=== PATIENT | male | born 1930 | race Caucasian/White ===

== ENCOUNTER 2016-11-17 14:29 | Inpatient (IN) | payer MEDICARE, BC ==
[2016-11-17] MEDS: Sodium Chloride 0.9% 10 ML Syringe FLUSH PRN ×2 (15:56→19:54)
[2016-11-17] MEDS ORDERED: Sodium Chloride 0.9% 1,000 ML IV ONE (17:11)
[2016-11-17] MEDS ORDERED: cefTRIAXone 500 MG Vial IVPUSH ONE (17:13)
[2016-11-17] MEDS ORDERED: cefTRIAXone 1 GM in Sodium Chloride 0.9% 50 ML IV ONE (17:58)
--- NOTE | 2016-11-17 18:50 | PCM.HP ---
H&P History of Present Illness - General Date of Service: 11/17/16 Admit Problem/Dx: Pt admitted with increased confusion, Pneumonia and weakness Source of Information: Family () History Limitations: Reports: No limitations, Altered mental status (pt is confused), Other (obtained from ) - History of Present Illness Initial Comments - Free Text/Narative: Young Martinez is a 86 y.o. 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 He has not needed transfusions. He was noted to have worsening leukopenia and thrombocytopenia in October 2016. He started requiring PRBC transfusion and was also hospitalized for a community acquired pneumonia in October 2016. A bone marrow biopsy and aspirate was done 10/16/16, remarkable for trilineage dyspoiesis and 8% blasts. Sideroblasts were noted in 30 of 50 nrbc's. The bone marrow sections are 20% cellular. He is started treatment for Myelodysplasia with Azacitadine on 11/09/16 and completed 7 days course on 11/15/16. and he gets followed by Dr. [facility] [place] Today he feels extremely weak and confused and can not help him at home brought to ED and had CXR showed RT lower lobe consolidation/Infiltrate and he also had CT of Head and found to have no acute intracranial pathology. at home he is normally active and able to do his thing by himself Onset of Symptoms: Reports: today, sudden Associated Symptoms: Reports: cough w sputum, loss of appetite - Related Data Allergies/Adverse Reactions: Allergies Allergy/AdvReac Type Severity Reaction Status Date / Time iodine Allergy Cannot Verified 11/17/16 19:50 Remember lorazepam Allergy Confusion Verified 11/17/16 19:50 Home Medications: Home Meds Acetaminophen [Tylenol] 2 tab PO Q6H PRN 06/29/14 [History] Allopurinol 300 mg PO DAILY 06/29/14 [History] Hydrochlorothiazide 25 mg PO DAILY 06/29/14 [History] Meclizine [Antivert] 50 mg PO DAILY 06/29/14 [History] Omeprazole 20 mg PO DAILY 06/29/14 [History] Tamsulosin HCl 1 tab PO DAILY 06/29/14 [History] Ferrous Sulfate 324 mg PO BID 04/09/16 [History] Finasteride 5 mg PO DAILY 04/09/16 [History] Azithromycin [Zithromax] 250 mg PO DAILY 11/17/16 [History] Prochlorperazine Maleate [Compazine] 10 mg PO DAILY PRN 11/17/16 [History] Past Medical History HEENT History: Reports: Cataract, Hard of hearing, Impaired vision Cardiovascular History: Reports: Hypertension Respiratory History: Reports: Asthma, COPD, SOB Other Respiratory History: Uses O2 at bedtime at 1L per nc. Gastrointestinal History: Reports: GERD Genitourinary History: Reports: BPH, Prostate disorder CUTTER DOWN History: Reports: None Musculoskeletal History: Reports: Gout Neurological History: Reports: None Psychiatric History: Reports: None Endocrine/Metabolic History: Reports: None Hematologic History: Reports: Anesthesia reaction, Anemia Other Hematologic History: GI intolerance from anesthesia Immunologic History: Reports: None Oncologic (Cancer) History: Reports: Bladder, Lung Dermatologic History: Reports: None - Infectious Disease History Infectious Disease History: Reports: Chicken pox, Measles, Mumps, Rubella - Past Surgical History HEENT Surgical History: Reports: Cataract surgery Respiratory Surgical History: Reports: Lung Resection, Thoracotomy Other Respiratory Surgeries/Procedures: wedge resection RUL (sq. cell CA) 2008, and RLL (benign) 2014 GI Surgical History: Reports: None Male Surgical History: Reports: Cystectomy, Penile surgery, TURP- Transurethral resection of prostate Social & Family History - Family History Family Medical History: Noncontributory Endocrine/Metabolic: Reports: Diabetes, type II Oncologic: Reports: Bladder, Other (see below) Other Oncologic Family History: bladder cancer-father - Tobacco Use Smoking Status *Q: Never Smoker Years of Tobacco use: 60 Packs/Tins Daily: 3 Used Tobacco, but Quit: Yes Month Tobacco Last Used: 6 years ago Second Hand Smoke Exposure: No - Caffeine Use Caffeine Use: Reports: Coffee - Alcohol Use Days Per Week of Alcohol Use: 0 - Recreational Drug Use Recreational Drug Use: No Drug Use in Last 12 Months: No - Living Situation & Occupation Living situation: Reports: , with spouse Occupation: retired H&P Review of Systems - Review of Systems: Review Of Systems: Unable To Obtain Free Text/Narrative: pt is confused and only said I am feeling Terrible Exam - Exam Exam: See Below - Vital Signs Vital Signs: Last Vital Signs Temp 37.2 C 11/17/16 14:43 Pulse 103 H 11/17/16 14:43 Resp 16 11/17/16 14:43 BP 106/43 L 11/17/16 14:43 Pulse Ox 92 L 11/17/16 14:43 Weight: 76.113 kg - Exam Quality Assessment: DVT prophylaxis. No: supplemental oxygen, urinary catheter General: alert, cooperative, other (confused) HEENT: Conjunctiva clear, Hearing intact, Mucosa moist & pink Neck: supple. No: lymphadenopathy, thyromegaly Lungs: Clear to auscultation, Normal respiratory effort Cardiovascular: regular rate, regular rhythm, systolic murmur Abdomen: normal bowel sounds, soft (Male) Exam: Deferred Rectal (Males) Exam: Deferred Back Exam: normal inspection Skin: warm, dry, intact Neuro Extensive - Mental Status: alert (not oriented), normal mood/affect, normal cognition Psychiatric: alert - Patient Data Result Diagrams: 11/17/16 15:11 11/17/16 15:11 *Q Meaningful Use (ADM) - VTE *Q VTE Criteria *Q: - Stroke *Q Stroke Criteria *Q: - AMI *Q AMI Criteria *Q: - Problem List (1) Hypokalemia SNOMED Code(s): 66521040 ICD Code: E87.6 - HYPOKALEMIA Status: Acute Current Visit: Yes (2) Thrombocytopenia SNOMED Code(s): 796176554 ICD Code: D69.6 - THROMBOCYTOPENIA, UNSPECIFIED Status: Acute Current Visit: Yes (3) Leukopenia SNOMED Code(s): 45795677 ICD Code: D72.819 - DECREASED WHITE BLOOD CELL COUNT, UNSPECIFIED Status: Acute Current Visit: Yes (4) Hypotension SNOMED Code(s): 65006148 ICD Code: I95.9 - HYPOTENSION, UNSPECIFIED Status: Acute Current Visit: Yes (5) COPD exacerbation SNOMED Code(s): 803974877, 716697268 ICD Code: J44.1 - CHRONIC OBSTRUCTIVE PULMONARY DISEASE W (ACUTE) EXACERBATION Status: Acute Priority: Medium Current Visit: No (6) Pneumonia SNOMED Code(s): 270134296 ICD Code: J18.9 - PNEUMONIA, UNSPECIFIED ORGANISM Status: Acute Priority : High Current Visit: No Qualifiers: Pneumonia type: due to unspecified organism Laterality: right Lung location: lower lobe of lung Qualified Code(s): J18.1 - Lobar pneumonia, unspecified organism (7) Altered mental status SNOMED Code(s): 065393830 ICD Code: R41.82 - ALTERED MENTAL STATUS, UNSPECIFIED Status: Resolved Priority: Medium Current Visit: No Qualifiers: Altered mental status type: disorientation Qualified Code(s): R41.0 - Disorientation, unspecified Problem List Initiated/Reviewed/Updated: Yes Orders Last 24hrs: Medication Orders Sodium Chloride (Normal Saline) 1,000 mls @ 500 mls/hr IV .BOLUS ONE Stop: 11/17/16 19:10 Last Admin: 11/17/16 17:56 Dose: 500 mls/hr Sodium Chloride (Saline Flush) 10 ml FLUSH ASDIRECTED PRN PRN Reason: Keep Vein Open Last Admin: 11/17/16 15:56 Dose: 10 ml Assessment/Plan Comment:: This is a 86 y.o. with newly diagnosed myelodysplasia and lung cancer in remission, chronic with recurrent superficial bladder cancer, has completed 7 days course of Chemotherapy fro Newly Dxed Myelodysplasia, last dose of therapy on 11/15/16. Today he feels extremely weak and confused and can not help him at home brought to ED and had CXR showed RT lower lobe consolidation/Infiltrate and he also had CT of Head and found to have no acute intracranial pathology. at home he is normally active and able to do his thing by himself. 1. COPD Exacerbation: Likely with Rt lower lode pneumonia -Will start him on Zosyn 3.375 mg IV q6 hrs and Ceftriaxone 1 gm IV daily -Will start Solumedroal 40 mg IV q8 hrs -Follow Blood culture and also get sputum culture -Will conmtinue IV Fluids NS with potassium chloride 20 meq at 75 ml/hr -Encourage Flutter Valve and Incentive spirometry 2. Altered Mental Status: This is likely from Infection -Will Continue IV fluid and antibiotics 3. Hypokalemia: This is likely from poor oral Intake -Will give with IV fluids 4. Hypertension: Continue Home medication 5. Lung Cancer and Myelodysplasia: Will Follow with Oncology after discharge 6. Thrombocytopenia: Likely from Chemotherapy and Myelodysplasia, He is not actively bleeding and will discuss with oncology before transfusing platelet 7. Leukopenia: Thiis likely from Chemotherapy as well as Myelodysplasia, Follow B/C and continue Abx 8. DVT prophylaxis: Heparin 5000 units q8 hrs 9. GI Prophylaxis: Protonicx 40 mg IV daily in AM 10. Code Status: Discussed with and he is DNR/DNI
[2016-11-17] MEDS ORDERED: Acetaminophen 325 MG Tab PO PRN (19:14)
[2016-11-17] MEDS ORDERED: Docusate Sodium 100 MG Cap PO PRN (19:14)
[2016-11-17] MEDS ORDERED: NS + KCl 20mEq/L 1,000 ML IV SCH (19:30)
--- NOTE | 2016-11-17 19:44 | ER ---
SUBJECTIVE: The patient is an 86-year-old male, who was brought in by his , who is the sole caregiver, for general weakness and confusion, having a hard time taking care of him by herself at home. 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 He has not tolerated very well. He has become very weak and confused. He will not help transfer to the toilet any longer out of his chair and his cannot handle him. He has been on a Z-Deonte apparently for some pneumonia. He has not had any but studies of lately. All of the history comes from his . There is no history obtained from the patient and he can also not provide any ROS. PAST MEDICAL HISTORY: Significant for cataracts, hard of hearing, impaired vision, cataract surgery, hypertension, asthma, COPD, shortness of breath, uses oxygen 1 L at home per nasal cannula, lung resection, thoracotomy, had a wedge resection, right upper lobe. He has GERD, BPH, cystectomy, penile surgery, TURP, gout, osteoarthritis. He has leukemia. He had bladder and lung cancer. He had chickenpox, measles, mumps and rubella. FAMILY HISTORY: Bladder cancer, diabetes. CURRENT MEDICATIONS: Include: 1. Tylenol p.r.n. 2. Allopurinol 300 mg p.o. daily. 3. Hydrochlorothiazide 25 mg p.o. daily. 4. Meclizine 12.5 mg p.o. daily. 5. Omeprazole 20 mg p.o. daily. 6. Tamsulosin 1 tablet p.o. daily. 7. Cranberry tablet 4200 mg p.o. daily. 8. Ferrous sulfate 324 mg p.o. b.i.d. 9. Finasteride 5 mg p.o. daily. 10.Azithromycin 250 mg p.o. daily. 11.Compazine 10 mg p.o. p.r.n. ALLERGIES: He is allergic to iodine, and does not recall why lorazepam causes confusion. SOCIAL HISTORY: He is . His is the sole caregiver. He is retired, lives at home. He does not use tobacco, alcohol or drugs. REVIEW OF SYSTEMS: Some confusion today, general weakness on top of a chronic weakness. No falls or trauma. Chronic shortness of breath, chronic oxygen therapy at night time. He does have chronic shortness of breath. He is on oxygen at night. No nausea or vomiting. He has a decreased appetite. He has decreased strength, not helping to ambulate and transfer. No further ROS really available and he just had a decline in general and especially since getting chemotherapy per his . OBJECTIVE: Vital signs: Height is 1.7 m, weight is 76 kg. He is afebrile and heart rate is 103, blood pressure is 106/43, respiratory rate 16, oxygen is 92%. General: A large tall male in no distress. He seems somewhat confused. He is pleasant. He mostly wants to sleep. He is easily arousable and looked kind of confused at the questionnaire, then answers some questions that I do not know if he make sense. HEENT: He is normocephalic and atraumatic. Mucous membranes moist. Chest: Clear. CV: RRR. Abdomen: Soft and benign. Extremities: No calf tenderness. No specific signs of trauma, falls, or cellulitis. LAB/STUDIES: White blood cell count is decreased at 2.9, hemoglobin and hematocrit are also low at 8.4 and 25.3, respectively, platelets are also low at only 24, his neutrophils are elevated at 88.5, he has no band cells. His sodium is low at 131, potassium 3.3, chloride is 92. His gap is normal. His BUN and creatinine are elevated at 48 at 1.9, respectively. Glucose is 134. Lactic acid is elevated at 3.0. Calcium is normal. Total bili is 1.4 and elevated but LFTs are otherwise normal. Amylase is normal at 93. INR is 1.2. The blood cultures were obtained. Urine is yellow and clear, has 100 protein, trace occult blood, negative leukocyte esterase, negative nitrites. He does have moderate bacteria. Urine is sent for culture as well. ER COURSE: A line was placed, a chest x-ray was ordered. Head CAT scan was ordered, blood work was ordered. Double blood cultures were obtained. Urinalysis was obtained. The chest x-ray showed some changes with concern of possible early or resolving pneumonia, also possible lesion from his lung carcinoma. His head CT showed global atrophy with chronic ischemic changes but no acute changes. Once cultures were obtained, he was given Rocephin 1 g. He was given normal saline bolus as well. I had a long discussion with his after the workup was complete and discussed. The patient is cared at home, and her inability to care for him; the patient's confusion, weakness, and inability to help with his care; and overall decline; she advised me that the patient is DNR if his heart and lungs were to quit and he was no longer breathing, had heart rate, he wants nothing done and once be left alone. I tried to obtain a form in the ER, so that she could fill this out and I would be happy to assist her. There is not one available, perhaps, there will be one available on the floor and Dr. Ordonez can help to fill it. I did discuss the patient with Dr. Ordonez who is the hospitalist today and he graciously agreed to accept the patient to his inpatient service. ASSESSMENT: 1. Pneumonitis, resolved with new changes. 2. Known leukemia with recent chemotherapy with global decline. 3. Mental status changes with confusion and weakness. 4. Suspected sepsis. 5. Pancytopenia and the patient getting first dose of chemotherapy recently for leukemia. 6. Volume depletion. 7. Acute renal failure versus chronic renal insufficiency with elevated BUN and creatinine. 8. Failure to thrive and perform ADLs and IADLs. 9. DNR. After discussion with his , she is happy to fill out a form. There was not one available in the ER. PLAN: Admit the patient to the care of Dr. Ordonez. Recommend DNR form B supplied to the , so she can fill this out. [facility] /[id number]
[2016-11-17] MEDS: Piperacillin/Tazobactam 3.375 GM in Sodium Chloride 0.9% 100 ML IV SCH (19:53)
[2016-11-17] MEDS: methylPREDNISolone Sodium Succinate 40 MG/1 ML SDV IVPUSH SCH (19:54)
[2016-11-17] MEDS ORDERED: Ferrous Sulfate 325 MG Tab PO SCH (21:00)
[2016-11-17] MEDS ORDERED: Albuterol/Ipratropium 3.0-0.5 MG/3 ML Neb Soln NEB PRN (21:02)
[2016-11-18] MEDS: methylPREDNISolone Sodium Succinate 40 MG/1 ML SDV IVPUSH SCH (03:03)
[2016-11-18] MEDS: Piperacillin/Tazobactam 3.375 GM in Sodium Chloride 0.9% 100 ML IV SCH ×2 (03:04→08:00)
[2016-11-18] MEDS ORDERED: Pantoprazole 40 MG Tab.CR PO STA (07:44)
[2016-11-18 07:48] VITALS: BP 116/48
--- NOTE | 2016-11-18 07:54 | PCM.DCSUM1 ---
Discharge Summary - Hospital Course Free Text/Narrative:: Today he is more alert and says feels better, No nausea or vomiting, he is not actively bleeding and stable HPI Initial Comments: Young Martinez is a 86 y.o. 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 He has not needed transfusions. He was noted to have worsening leukopenia and thrombocytopenia in October 2016. He started requiring PRBC transfusion and was also hospitalized for a community acquired pneumonia in October 2016. A bone marrow biopsy and aspirate was done 10/16/16, remarkable for trilineage dyspoiesis and 8% blasts. Sideroblasts were noted in 30 of 50 nrbc's. The bone marrow sections are 20% cellular. He is started treatment for Myelodysplasia with Azacitadine on 11/09/16 and completed 7 days course on 11/15/16. and he gets followed by Dr. Live at [place] He was admitted on 11/17/16 because of extreme weakness and confusion and can not help him at home ,brought to ED and had CXR showed RT lower lobe consolidation/Infiltrate and he also had CT of Head and found to have no acute intracranial pathology. at home he is normally active and able to do his thing by himself. Today his Hgb 6.7 g/dl, Plt 9 and WBC 1.3. He is Dr. Live's pt and needs to be transferred for higher level of care - Discharge Data Discharge Date: 11/18/16 Discharge Disposition: DC/Tfer to Acute Hospital 02 Condition: Stable - Discharge Diagnosis/Problem(s) (1) Hypokalemia SNOMED Code(s): 29708406 ICD Code: E87.6 - HYPOKALEMIA Status: Acute Current Visit: Yes (2) Thrombocytopenia SNOMED Code(s): 073616334 ICD Code: D69.6 - THROMBOCYTOPENIA, UNSPECIFIED Status: Acute Current Visit: Yes (3) Leukopenia SNOMED Code(s): 86643149 ICD Code: D72.819 - DECREASED WHITE BLOOD CELL COUNT, UNSPECIFIED Status: Acute Current Visit: Yes (4) Hypotension SNOMED Code(s): 40457156 ICD Code: I95.9 - HYPOTENSION, UNSPECIFIED Status: Acute Current Visit: Yes (5) COPD exacerbation SNOMED Code(s): 812956502, 344613094 ICD Code: J44.1 - CHRONIC OBSTRUCTIVE PULMONARY DISEASE W (ACUTE) EXACERBATION Status: Acute Priority: Medium Current Visit: No (6) Pneumonia SNOMED Code(s): 995348074 ICD Code: J18.9 - PNEUMONIA, UNSPECIFIED ORGANISM Status: Acute Priority : High Current Visit: No Qualifiers: Pneumonia type: due to unspecified organism Laterality: right Lung location: lower lobe of lung Qualified Code(s): J18.1 - Lobar pneumonia, unspecified organism - Patient Instructions Diet: Regular Diet as Tolerated Activity: As Tolerated Showering/Bathing: May Shower - Discharge Plan Home Medications: Home Meds Acetaminophen [Tylenol] 2 tab PO Q6H PRN 06/29/14 [History] Allopurinol 300 mg PO DAILY 06/29/14 [History] Hydrochlorothiazide 25 mg PO DAILY 06/29/14 [History] Meclizine [Antivert] 50 mg PO DAILY 06/29/14 [History] Omeprazole 20 mg PO DAILY 06/29/14 [History] Tamsulosin HCl 1 tab PO DAILY 06/29/14 [History] Ferrous Sulfate 324 mg PO BID 04/09/16 [History] Finasteride 5 mg PO DAILY 04/09/16 [History] Azithromycin [Zithromax] 250 mg PO DAILY 11/17/16 [History] Prochlorperazine Maleate [Compazine] 10 mg PO DAILY PRN 11/17/16 [History] Forms: ED Department Discharge - Discharge Summary/Plan Comment DC Time >30 min.: Yes Discharge Summary/Plan Comment: Assessment/Plan Comment:: This is a 86 y.o. with newly diagnosed myelodysplasia and lung cancer in remission, chronic with recurrent superficial bladder cancer, has completed 7 days course of Chemotherapy fro Newly Dxed Myelodysplasia, last dose of therapy on 11/15/16. Today he feels extremely weak and confused and can not help him at home brought to ED and had CXR showed RT lower lobe consolidation/Infiltrate and he also had CT of Head and found to have no acute intracranial pathology. at home he is normally active and able to do his thing by himself. 1. COPD Exacerbation: This is Likely with Rt lower lode pneumonia -Will continue him on Zosyn 3.375 mg IV q6 hrs and Ceftriaxone 1 gm IV daily -Will continue Solumedroal 40 mg IV q8 hrs -Follow Blood culture and also get sputum culture -Will continue IV Fluids NS with potassium chloride 20 meq at 75 ml/hr -Encourage Flutter Valve and Incentive spirometry 2. Altered Mental Status: This is likely from Infection -Will Continue IV fluid and antibiotics -He is much better today and no more confused 3. Hypokalemia: This is likely from poor oral Intake -Will continue IV fluids with potassium 4. Hypertension: Home medication on hold, he came with hypotension and received fluids, BP is better 5. Lung Cancer and Myelodysplasia: Will Follow with Oncology after discharge 6. Thrombocytopenia: Likely from Chemotherapy and Myelodysplasia, He is not actively bleeding and will need platelet Transfusion but at [facility] it will take long time to get leukoreduced and irradiated blood for transfusion and will transfer him to [facility] for higher Level of care 7. Anemia: This is from Myelodysplasia and will need acute blood transfusion and will tranfer him to [facility]. I talk to Dr. Carver and will get blood transfusion at [facility], will take long time to get leukoreduced and irradiated blood for transfusion at [facility] and will transfer him to [facility] for higher Level of care and he needs both PRBC and Platelet 8. Leukopenia: Thiis likely from Chemotherapy as well as Myelodysplasia, Follow B/C and continue Abx 9. DVT prophylaxis: Heparin 5000 units q8 hrs 10. GI Prophylaxis: Protonicx 40 mg PO daily in AM 10. Code Status: Discussed with and he is DNR/DNI - General Info Date of Service: 11/18/16 Admission Dx/Problem (Free Text: Pt admitted with increased confusion, Pneumonia and weakness Functional Status: Reports: pain controlled, urinating - Review of Systems General: Denies: Fever, Malaise, Chills HEENT: Denies: ear pain, headaches, sinus congestion Pulmonary: Reports: wheezing. Denies: shortness of breath, pleuritic chest pain , cough, sputum Cardiovascular: Denies: Chest Pain, Dyspnea on Exertion, Lightheadedness Gastrointestinal: Denies: Abdominal pain, Diarrhea, Nausea, Vomiting Genitourinary: Denies: dysuria, frequency, burning, urgency Musculoskeletal: Denies: neck pain, shoulder pain, foot pain Skin: Denies: bruising, pruritis, rash Neurological: Reports: Weakness. Denies: Confusion, Dizziness Psychiatric: Denies: confusion, anxiety - Patient Data Vitals - Most Recent: Last Vital Signs Temp 36.6 C 11/18/16 07:47 Pulse 88 11/18/16 07:47 Resp 20 11/18/16 07:47 BP 116/48 L 11/18/16 07:47 Pulse Ox 91 L 11/18/16 07:47 Weight - Most Recent: 76.113 kg I&O - Last 24 hours: Intake & Output 11/17/16 11/18/16 11/18/16 22:59 06:59 14:59 Intake Total 1358 900 Output Total 250 200 Balance 1108 700 Lab Results - Last 24 hrs: Laboratory Results - last 24 hr 11/18/16 11/18/16 Range/Units 06:16 06:16 WBC 1.3 L* (5.0-10.0) 10^3/uL RBC 2.06 L (4.6-6.2) 10^6/uL Hgb 6.7 L* (14.0-18.0) g/dL Hct 20.3 L* (40.0-54.0) % MCV 98.5 (80-100) fL MCH 32.5 (27.0-34.0) pg MCHC 33.0 (33.0-35.0) g/dL Plt Count 9 L* (150-450) 10^3/uL Neut % (Auto) 93.0 H (42.2-75.2) % Lymph % (Auto) 5.4 L (20.5-50.1) % Sabine % (Auto) 0.8 L (2-8) % Eos % (Auto) 0.0 L (1.0-3.0) % Baso % (Auto) 0.8 (0.0-1.0) % Add Manual Diff Yes Neutrophils % (Manual) 87 % Band Neutrophils % 2 % Lymphocytes % (Manual) 8 % Atypical Lymphs % 1 % Monocytes % (Manual) 2 % Macrocytosis 1+ slight Tear Drop Cells Occasional Sodium 132 L (135-145) mmol/L Potassium 4.1 (3.6-5.0) mmol/L Chloride 98 L (101-111) mmol/L Carbon Dioxide 27.0 (21.0-31.0) mmol/L Anion Gap 11.1 BUN 40 H (7-18) mg/dL Creatinine 1.5 H (0.6-1.3) mg/dL Est Cr Clr Drug Dosing 33.05 mL/min Estimated GFR (MDRD) 44 Glucose 153 H (74-105) mg/dL Calcium 7.9 L (8.4-10.2) mg/dl Med Orders - Current: Current Medications Acetaminophen (Tylenol) 650 mg PO Q4H PRN PRN Reason: Pain (mild 1-3 )/fever Albuterol/Ipratropium (Duoneb 3.0-0.5 Mg/3 Ml) 3 ml NEB Q4HRRT PRN PRN Reason: Shortness of Breath Last Admin: 11/17/16 21:20 Dose: 3 ml Allopurinol (Zyloprim) 300 mg PO DAILY [facility] Docusate Sodium (Colace) 100 mg PO DAILY PRN PRN Reason: Constipation Ferrous Sulfate (Ferrous Sulfate) 325 mg PO BID [facility] Last Admin: 11/17/16 20:58 Dose: 325 mg Finasteride (Proscar) 5 mg PO DAILY [facility] Hydrochlorothiazide (Hydrochlorothiazide) 25 mg PO DAILY [facility] Potassium Chloride/Sodium Chloride (Normal Saline With 20 Meq Kcl) 1,000 mls @ 75 mls/hr IV ASDIRECTED [facility] Last Admin: 11/17/16 19:54 Dose: 75 mls/hr Piperacillin Sod/Tazobactam (Sod 3.375 gm/ Sodium Chloride) 100 mls @ 200 mls/ hr IV Q6H [facility] Last Admin: 11/18/16 03:04 Dose: 200 mls/hr Ceftriaxone Sodium 1 gm/ (Sodium Chloride) 100 mls @ 200 mls/hr IV Q24H [facility] Meclizine HCl (Antivert) 50 mg PO DAILY [facility] Methylprednisolone Sodium Succinate (Solu-Medrol) 40 mg IVPUSH Q8H [facility] Last Admin: 11/18/16 03:03 Dose: 40 mg Sodium Chloride (Saline Flush) 10 ml FLUSH ASDIRECTED PRN PRN Reason: Keep Vein Open Last Admin: 11/17/16 19:54 Dose: 10 ml Tamsulosin HCl (Flomax) 0.4 mg PO DAILY [facility] Discontinued Medications Ceftriaxone Sodium (Rocephin) 1,000 mg IVPUSH ONETIME ONE Stop: 11/17/16 17:14 Last Admin: 11/17/16 18:45 Dose: Not Given Sodium Chloride (Normal Saline) 1,000 mls @ 500 mls/hr IV .BOLUS ONE Stop: 11/17/16 19:10 Last Admin: 11/17/16 17:56 Dose: 500 mls/hr Ceftriaxone Sodium 1 gm/ (Sodium Chloride) 50 mls @ 100 mls/hr IV ONETIME ONE Stop: 11/17/16 18:27 Last Admin: 11/17/16 18:04 Dose: 100 mls/hr Ceftriaxone Sodium 1 gm/ (Sodium Chloride) 100 mls @ 200 mls/hr IV Q24H [facility] Pantoprazole Sodium (Protonix) 40 mg PO ONETIME STA Stop: 11/18/16 07:45 - Exam Quality Assessment: Reports: DVT prophylaxis. Denies: supplemental oxygen, urine catheter General: Reports: alert, oriented, cooperative, no acute distress HEENT: Reports: Pupils equal, Mucous membr. moist/pink Neck: Reports: supple, no thyromegaly. Denies: lymphadenopathy Lungs: Reports: Clear to auscultation, Normal respiratory effort, Wheezing Cardiovascular: Reports: Regular Rate, Regular Rhythm, Murmurs Abdomen: Reports: bowel sounds present, soft, no tenderness, no distension (Male) Exam: Deferred Rectal (Males) Exam: Deferred Back Exam: Reports: normal inspection, full range of motion Extremities: Reports: no edema Skin: Reports: warm, dry, intact Neurological: Reports: no new focal deficit Psy/Mental Status: Reports: alert, normal affect, normal mood *Q Meaningful Use (DIS) - VTE *Q VTE Criteria *Q: - Stroke *Q Stroke Criteria *Q: - AMI *Q AMI Criteria *Q:
[2016-11-18] MEDS ORDERED: cefTRIAXone 1 GM in Sodium Chloride 0.9% 100 ML IV SCH ×2 (08:00→18:00)
[2016-11-18] MEDS ORDERED: Hydrochlorothiazide 25 MG Tab PO SCH (09:00)
[2016-11-18] MEDS ORDERED: Tamsulosin 0.4 MG Cap.ER PO SCH (09:00)
[2016-11-18] MEDS ORDERED: Finasteride 5 MG Tab PO SCH (09:00)
[2016-11-18] MEDS ORDERED: Meclizine 12.5 MG Tab PO SCH (09:00)
[2016-11-18] MEDS ORDERED: Allopurinol 300 MG Tab PO SCH (09:00)
== END 2016-11-18 08:20 | DRG 811 ==
LOC: DL.ED 14:29 → DL.MS 18:26 → UNDOADMIN 18:26 → DL.MS 19:20 → UNDODISIN 11-18 08:20
PROVIDERS: ADMIT Internal Medicine Nephrology; ATTEND Internal Medicine Nephrology
DX: D46.9 Myelodysplastic syndrome, unspecified (principal); J18.9 Pneumonia, unspecified organism; D61.1 Drug-induced aplastic anemia; R41.82 Altered mental status, unspecified; J44.1 Chronic obstructive pulmonary disease with (acute) exacerbation; Z85.118 Personal history of other malignant neoplasm of bronchus and lung; Z66 Do not resuscitate; C67.9 Malignant neoplasm of bladder, unspecified; E87.6 Hypokalemia; Z87.891 Personal history of nicotine dependence; D72.819 Decreased white blood cell count, unspecified; D69.6 Thrombocytopenia, unspecified; D70.1 Agranulocytosis secondary to cancer chemotherapy; I95.9 Hypotension, unspecified; I10 Essential (primary) hypertension; T50.905A Adverse effect of unspecified drugs, medicaments and biological substances, initial encounter; R53.1 Weakness; R41.0 Disorientation, unspecified; M10.9 Gout, unspecified; M19.90 Unspecified osteoarthritis, unspecified site; N40.0 Benign prostatic hyperplasia without lower urinary tract symptoms; K21.9 Gastro-esophageal reflux disease without esophagitis; H54.7 Unspecified visual loss; H91.90 Unspecified hearing loss, unspecified ear; Z88.8 Allergy status to other drugs, medicaments and biological substances; Z91.048 Other nonmedicinal substance allergy status
CPT/HCPCS: 36415; 70450; 71020; 80053; 81001; 82150; 83605; 85025; 85610; 87040; 96365; 96368; 99285; J0696; J7030; J7050 ×2; 80048; 96366; A9270-GY; J2543; J2920; J3480